=== PATIENT | male | born 1960 | race Hispanic/Latino ===

== ENCOUNTER → 2018-08-23 | Outpatient (CLI) | payer OTHER | END | disposition home or self-care (01) | LOC: RAH 10:53 | PROVIDERS: ATTEND Physical Medicine & Rehabilitation | DX: S88.111D Complete traumatic amputation at level between knee and ankle, right lower leg, subsequent encounter (principal); X58.XXXD Exposure to other specified factors, subsequent encounter | CPT/HCPCS: 73218 ==

== ENCOUNTER 2018-10-20 06:16 | Day surgery (SDC) | payer OTHER ==
[2018-10-19 15:24] VITALS: BP 133/72
[2018-10-19 15:45] LABS: BASOPHILS % (AUTO) 0.4 % (0.0-5.0); HEMATOCRIT 41.1 % (42-54); LYMPHOCYTES % (AUTO) 30.9 % (21.0-51.0); MEAN CORPUSCULAR HEMOGLOBIN 29.5 pg (27.0-33.0); MEAN CORPUSCULAR HGB CONC 33.5 g/dL (32.0-36.0); MEAN CORPUSCULAR VOLUME 88.1 fL (79-99); MONOCYTES % (AUTO) 5.3 % (3.0-13.0); NEUTROPHILS % (AUTO) 62.4 % (40.0-77.0); NUCLEATED RED BLOOD CELLS 0.1 % (0.0-0.19); PLATELET COUNT (AUTO) 257 K/uL (130-400); RED BLOOD CELL COUNT(AUTO) 4.66 MIL/uL (4.50-6.20); WHITE BLOOD COUNT (AUTO) 10.2 K/uL (4.8-10.8)
[2018-10-19 15:54] LABS: CREATININE 0.9 mg/dL (0.5-1.5); POTASSIUM 3.8 mmol/L (3.5-5.1)
--- NOTE | 2018-10-19 17:15 | NUR ---
NOTE REPORT h&H TO DR ANTONY , NO FURTHER ORDERS GIVEN.
[2018-10-20] VITALS (14 sets, daily range): BP systolic 118–180; BP diastolic 52–94
[~2018-10-20] VITALS: Ht 174 cm; Wt 78.3 kg
[2018-10-20] MEDS ORDERED: CEFAZOLIN SODIUM 1 GM VIAL ONE ×2 (06:54→09:37)
[2018-10-20] MEDS ORDERED: LACTATED RINGERS 1000ML 1,000 ML IV ONE (06:54)
--- NOTE | 2018-10-20 07:11 | NUR ---
POTENTIAL FOR INFECTION: SHAVED RIGHT UPPER LEG / STUMP TO KNEE AND WIPED WITH RAUL: 2% CHLORHEXIDINE GLUCONATE CLOTH PATIENT PRE-OP SKIN PREP PER LILIBETH GALLOWAY.
[2018-10-20] MEDS ORDERED: CEFAZOLIN SODIUM 1 GM VIAL IVP PRN (08:00)
[2018-10-20] MEDS ORDERED: PROPOFOL 10 MG/ML 20ML VIAL IV ONE (09:11)
[2018-10-20] MEDS ORDERED: LIDOCAINE PF 2% 5ML ABBOJECT ONE (09:11)
[2018-10-20] MEDS ORDERED: FENTANYL CITRATE PF 50 MCG/1 ML 2ML VIAL ONE ×2 (09:12→11:03)
[2018-10-20] MEDS ORDERED: MIDAZOLAM HCL 1 MG/ML 2ML VIAL ONE ×2 (09:12→10:49)
[2018-10-20] MEDS ORDERED: DEXAMETHASONE SOD PHOSPHATE 10MG/ML 1ML VIAL ONE (09:12)
[2018-10-20] MEDS ORDERED: ONDANSETRON HCL 4 MG/2 ML VIAL ONE (09:12)
[2018-10-20] MEDS ORDERED: ROCURONIUM 10MG/1ML SYR 10 MG/ML ML ONE (09:15)
[2018-10-20] MEDS ORDERED: OCTYL 2-CYANOACRYLATE 1 EACH TP ONE (10:09)
[2018-10-20] MEDS ORDERED: NEOSTIGMINE 5MG/5ML SYR IV ONE (10:29)
[2018-10-20] MEDS ORDERED: MEPERIDINE-PF 25 MG/ML SYG ONE (10:43)
[2018-10-20] MEDS ORDERED: TYL3 PO (10:43)
[2018-10-20] MEDS ORDERED: CEPH500B PO (10:43)
[2018-10-20] MEDS ORDERED: MORPHINE SULFATE 4 MG/1ML SYG ONE (10:54)
--- NOTE | 2018-10-20 11:45 | NUR ---
RECEIVE PT RECEIVED FROM PACU VIA STRETCHER AWAKE ORIENTED X3 DROWSY BUT EASILY AROUSABLE. NO COMPLAINTS. DRESSING TO RIGHT LEG BELOW THE KNEE DRY AND INTACT, NO OOZING NOTED, SENSATION TO TOUCH INTACT. RIGHT EXTREMITY ELEVATED. CALL JOHNSON WITHIN REACH, WILL CALL FOR TO COME IN TO ROOM.
--- NOTE | 2018-10-20 12:00 | NUR ---
ASSESS PT FULLY AWAKE AND ALERT. AT BEDSIDE TALKING TO PT.
--- NOTE | 2018-10-20 12:40 | NUR ---
DISCHARGE PT DISCHARGED WITH VIA WHEELCHAIR, RIGHT LEG ELEVATED WITH PILLOW. PT STABLE. NO COMPLAINTS MADE. DRESSING TO RIGHT LEG DRY AND INTACT. DISCHARGE INSTRUCTIONS ORDERED BY DR. ANTONY GIVEN TO AND PT, BOTH VERBALIZED UNDERSTANDING. Addendum: 10/20/18 at 1530 by LES RUANO RN RN ADDENDUM; CRUTCHES PROVIDED
== END 2018-10-20 12:40 | disposition home or self-care (01) ==
LOC: DAH 06:16
PROVIDERS: ATTEND Orthopaedic Surgery
DX: M71.561 Other bursitis, not elsewhere classified, right knee (principal); Z98.890 Other specified postprocedural states; Z79.899 Other long term (current) drug therapy
CPT/HCPCS: 27641; 36415; 80048; 85025; A4218; A4649 ×2; A4930; A6223; J0690 ×2; J1100; J2001; J2175; J2250 ×2; J2270; J2405; J2704; J2710; J3010 ×2; J7030; J7120

== ENCOUNTER → 2019-06-21 | Outpatient (CLI) | payer OTHER ==
[~2019-06-21] MED LIST: CEPH500B PO; TYL3 PO
== END | disposition home or self-care (01) ==
LOC: RAH 13:36
PROVIDERS: ATTEND Physical Medicine & Rehabilitation
DX: M51.16 Intervertebral disc disorders with radiculopathy, lumbar region (principal); M48.061 Spinal stenosis, lumbar region without neurogenic claudication
CPT/HCPCS: 72148

== ENCOUNTER → 2025-01-08 | Outpatient (CLI) | payer OTHER ==
[~2025-01-08] MED LIST changes: +GADOTERATE MEGLUMINE 10 MMOL/20 ML VIAL IV ONE
--- NOTE | 2025-01-08 15:21 | HMCIMG ---
MR KNEE RIGHT WWO HISTORY: Mass to popliteal area COMPARISON: 08/23/2018 TECHNIQUE: MRI of the right knee was performed utilizing multiple pulse sequences in axial, coronal and sagittal planes. Patient given 17 cc of clear ischemic through intravenous route. Marker was placed over the region of interest. FINDINGS: At the region of interest where marker was placed, there is enhancing soft tissue mass in the subcutaneous tissues in the popliteal fossa measuring 6.5 x 17 mm. Adjacent soft tissue swelling is seen. Vascular mass cannot be excluded. No abnormal signal intensity is seen of the visualized bony structure. The anterior cruciate and posterior cruciate ligaments are grossly intact. The medial and lateral collateral ligaments are also intact. There appears to be medial meniscal tear involving posterior wall with inferior articular extension. Quadriceps tendon and patellar tendon are within normal limits. There is intrasubstance tear involving the medial and lateral menisci. No evidence of Cedeno's cyst is seen. IMPRESSION: 1. At the region of interest where marker was placed, there is enhancing soft tissue mass in the subcutaneous tissues in the popliteal fossa measuring 6.5 x 17 mm. Adjacent soft tissue swelling is seen. Vascular mass cannot be excluded. Suspects medial meniscal tear involving posterior horn with inferior articular extension.
== END | disposition home or self-care (01) ==
LOC: RAH 13:36
PROVIDERS: ATTEND Physical Medicine & Rehabilitation
DX: L98.8 Other specified disorders of the skin and subcutaneous tissue (principal); M25.461 Effusion, right knee; M25.569 Pain in unspecified knee; M67.40 Ganglion, unspecified site
CPT/HCPCS: 73723; A9575